=== PATIENT | male | born 1995 | race Two or more races ===

== ENCOUNTER 2016-05-03 12:07 | Emergency (ER) | payer OTHER | END 2016-05-03 12:51 | disposition left against medical advice (07) | LOC: ER 12:08 | DX: Z53.21 Procedure and treatment not carried out due to patient leaving prior to being seen by health care provider (principal) ==

== ENCOUNTER 2016-05-03 13:17 | Emergency (ER) | payer OTHER ==
[~2016-05-03] VITALS: Ht 172.7 cm; Wt 56.7 kg
[2016-05-03] MEDS ORDERED: LIDOCAINE VISCOUS 2% UD 15 ML UDC ONE (13:44)
[2016-05-03] MEDS ORDERED: MAGNESIUM HYDROXIDE 30 ML UDC ONE (13:44)
[2016-05-03] MEDS ORDERED: DICYCLOMINE HCL 10 MG/5 ML UDC ONE (13:44)
[2016-05-03] MEDS: LIDOCAINE VISCOUS 2% UD 15 ML UDC MM ONE (13:50)
[2016-05-03] MEDS: DICYCLOMINE HCL 10 MG CAPSULE PO ONE (13:50)
[2016-05-03] MEDS: MAGNESIUM HYDROXIDE 30 ML UDC PO ONE (13:50)
[2016-05-03 14:01] LABS: BASOPHILS # (AUTO) 0.1 /CMM (0.0-0.2); BASOPHILS % (AUTO) 1.2 % (0.0-2.0); DIFF TOTAL % 100 %; EOSINOPHILS # (AUTO) 0.2 /CMM (0.0-0.7); EOSINOPHILS % (AUTO) 2.2 % (0.0-6.0); HEMATOCRIT 52 % (39-51); HEMOGLOBIN 17.2 g/dL (13.5-17.5); LYMPHOCYTES % (AUTO) 10.1 % (20.0-44.0); MEAN CORPUSCULAR HEMOGLOBIN 27 PG (26.0-33.0); MEAN CORPUSCULAR HGB CONC 33 g/dl (31.0-36.0); MEAN CORPUSCULAR VOLUME 82 fL (80-96); MONOCYTES # (AUTO) 0.8 /CMM (0.1-1.30); MONOCYTES % (AUTO) 8.2 % (2.0-12.0); NEUTROPHILS # (AUTO) 7.9 /CMM (1.8-8.9); NEUTROPHILS % (AUTO) 78.3 % (43.0-81.0); PLATELET COUNT (AUTO) 178 /CMM (150-450); RED BLOOD CELL COUNT(AUTO) 6.32 MIL/uL (4.5-6.0)
[2016-05-03 14:06] LABS: KETONES,URINE Trace (NEGATIVE); LEUKOCYTE ESTERASE ,URINE Negative (NEGATIVE)
[2016-05-03 14:07] LABS: ADD UA MICROSCOPIC YES
[2016-05-03 14:18] LABS: ALBUMIN 3.6 g/dL (3.4-5.0); BILIRUBIN,DIRECT 0.1 mg/dL (0.0-0.2); BILIRUBIN,TOTAL 0.4 mg/dL (0.2-1.0); CALCIUM, SERUM 8.9 mg/dL (8.5-10.1); CREATININE 0.8 mg/dL (0.6-1.3); INDIRECT BILIRUBIN 0.3 mg/dL (0.0-1.1); POTASSIUM 3.5 mmol/L (3.5-5.1)
[2016-05-03 15:31] LABS: RBC,URINE 0-2 /HPF (0-2); WBC,URINE 0-2 /HPF (0-3)
[2016-05-03 15:32] LABS: ADD URINE CULTURE NO
[2016-05-03 16:19] VITALS: BP 120/70
== END 2016-05-03 16:24 | disposition home or self-care (01) ==
LOC: ER 13:18
DX: R19.7 Diarrhea, unspecified (principal); R10.10 Upper abdominal pain, unspecified; Z88.8 Allergy status to other drugs, medicaments and biological substances
CPT/HCPCS: 36415; 80048-TC; 80076-TC; 81000-TC; 83690-TC; 85025-TC; A4606; Z7610